=== PATIENT | male | born 1945 | race Caucasian/White ===

== ENCOUNTER 2017-09-23 10:11 | Day surgery (SDC) | payer MEDICARE, OTHER ==
[~2017-09-23 10:11] MED LIST: KETOROLAC TROMETHAMINE 0.45% 4 DROP/0.4 ML DROPERETTE OS PRN
[2017-09-23] MEDS: TETRACAINE HCL 0.5% OPH SOLN 0.6 ML DROPERETTE OS PRN ×2 (11:12→11:40)
[2017-09-23] MEDS: CYCLOPENTOLATE 0.2%/PHENYLEPHRINE 1% OPH SOLN 2 ML OS PRN ×3 (11:12→11:33)
[2017-09-23] MEDS: BESIFLOXACIN HCL 0.6% OPH SUSP 5 ML BOTTLE OS PRN ×4 (11:13→12:32)
[2017-09-23] MEDS: TROPICAMIDE 1% OPH SOLN 3 ML OS PRN ×3 (11:13→11:33)
[2017-09-23] MEDS ORDERED: MIDAZOLAM 2 MG/2 ML INJ ONE ×2 (11:32)
[2017-09-23] MEDS ORDERED: ALBUTEROL SULFATE 0.083% NEB 2.5 MG/3 ML AMPUL NEB ONE (11:39)
[2017-09-23] MEDS: LIDOCAINE 4% INJ/PF (40 MG/ML) 5 ML AMPUL OS PRN ×2 (11:54)
[2017-09-23] MEDS: BUPIVACAINE HCL 0.75% INJ/PF (7.5 MG/1 ML) 10 ML SDV OS PRN ×2 (11:54)
[2017-09-23] MEDS: CHONDR SU A NA/HYALUR INTRAOC KIT (SURGICARE) ONE ×2 (12:11)
[2017-09-23] MEDS: EPINEPHRINE INJ/PF 1 MG/1 ML AMPULE ONE ×2 (12:11)
[2017-09-23] MEDS: LIDOCAINE 1% INJ-PF (10 MG/ML) 30 ML SDV ONE ×2 (12:11)
--- NOTE | 2017-09-23 12:59 | [facility] OPERATIVE REPORT E ---
[facility] Operative Report NAME: BRIDGETTE URIBE AGE: 72Y DATE OF SURGERY: 09/23/2017 ROOM: PREOPERATIVE DIAGNOSIS: CATARACT, LEFT EYE. POSTOPERATIVE DIAGNOSIS: CATARACT, LEFT EYE. OPERATION: Complex cataract extraction with intraocular lens left eye. SURGEON: WAYLON DUKE M.D. ANESTHESIA: Topical with MAC plus intraocular lidocaine. INDICATIONS FOR SURGERY: Difficulty driving. Best corrected visual acuity 20/60. Indications for complex poor pupil dilation requiring the use of the Malyugin ring. PROCEDURE: The patient was brought to the operating room and placed on the operating table. Topical anesthesia was administered. This consisted of instrument wipe pledgets soaked in a solution of 4% Xylocaine mixed with 0.75% Marcaine in a 1:2 ratio. A 2 x 1 cm pledget was placed in the superior fornix. A 1 x 1 cm pledget was placed in the inferior fornix. The eye was patched shut for 5 minutes. The patch and pledgets were removed. The eye was sterilely prepped and draped in the usual manner. A lid speculum was placed in the eye. A 4-0 black silk suture was placed around the superior and inferior rectus muscles to use as traction. A conjunctival peritomy was made at the 10 o'clock position. Hemostasis was attained with bipolar cautery. A posterior limbal groove was created using a crescent knife and dissected anteriorly towards the cornea. A sharp point blade was used to create a paracentesis site at the 2 o'clock position. A 2.4 mm keratome was used to enter the anterior chamber through the groove. Then 0.5 mL of 1% nonpreserved lidocaine was injected into the anterior chamber. Viscoelastic was injected into the anterior chamber. Pupil dilation was approximately 4.5 mm. A Malyugin ring was placed stabilizing the iris. An anterior capsulotomy was performed using Utrata forceps in a capsulorrhexis fashion. Hydrodissection and hydrodelineation were performed. Phacoemulsification was performed in a kceoqu-phc-etgihkp technique. A total of 1 minutes 4 seconds total phaco time was used. Following this, the I/A unit was used to remove residual cortex. Viscoelastic was injected into the capsular bag. Intraocular lens model [id number]; 21.5 diopters, serial number [id number] was placed in the capsular bag. The Malyugin ring haptics were removed and the ring was removed from the eye. The I/A unit was used to remove residual viscoelastic. The wound was seen to be watertight under high and low pressure and no sutures were placed. The 4-0 black silk sutures and lid speculum were removed. The eye was shielded after Besivance drops were placed. The patient tolerated the procedure well and was sent to the recovery room in good condition. DICTATING PHYSICIAN: WAYLON DUKE M.D. [id number] PHY#: [id number] ID: [id number] JOB#: [id number] ACCT: [id number] cc:WAYLON DUKE M.D. >
--- NOTE | 2017-09-23 12:59 | [facility] DISCHARGE SUMMARY E ---
[facility] Discharge Summary NAME: BRIDGETTE URIBE AGE: 72Y ADMITTED: 09/23/2017 DISCHARGED: 09/23/2017 PREOPERATIVE DIAGNOSIS: Cataract, left eye. POSTOPERATIVE DIAGNOSIS: Cataract, left eye. HOSPITAL COURSE: The patient is a 72-year-old gentleman who underwent uneventful complex cataract extraction with intraocular lens implant, left eye, on 09/23/2017. He will be discharged to home. He was instructed to resume preoperative medications, take Tylenol as needed for discomfort, to keep his eye shielded, to use Pred Forte, Ketorolac, and Vigamox at 3 p.m. and 8 p.m., and to followup in my office this afternoon. DICTATING PHYSICIAN: WAYLON DUKE M.D. [id number] PHY#: [id number] ID: [id number] JOB#: [id number] ACCT: [id number] cc:WAYLON DUKE M.D. >
[2017-09-23] MEDS ORDERED: ACETAMINOPHEN 325 MG TABLET PO PRN (13:55)
[2017-09-23] MEDS ORDERED: BRIMONIDINE TARTRATE 0.2% OPH SOLN 5 ML OS ONE (14:30)
== END 2017-09-23 13:26 | disposition home or self-care (01) ==
LOC: SC 10:11
PROVIDERS: ATTEND Ophthalmology
PROC: 08RK3JZ Replacement of Left Lens with Synthetic Substitute, Percutaneous Approach (ICD-10-PCS; principal; 2017-09-23 12:00)
DX: H25.812 Combined forms of age-related cataract, left eye (principal); I10 Essential (primary) hypertension; F17.210 Nicotine dependence, cigarettes, uncomplicated; Z79.899 Other long term (current) drug therapy
CPT/HCPCS: 66982; V2632; J2250; J3490 ×4; J0171; 142

== ENCOUNTER 2017-10-14 09:51 | Day surgery (SDC) | payer OTHER ==
[~2017-10-14 09:51] MED LIST changes: +KETOROLAC TROMETHAMINE 0.45% 4 DROP/0.4 ML DROPERETTE OD PRN; -KETOROLAC TROMETHAMINE 0.45% 4 DROP/0.4 ML DROPERETTE OS PRN
[2017-10-14] MEDS: CYCLOPENTOLATE 0.2%/PHENYLEPHRINE 1% OPH SOLN 2 ML OD PRN ×3 (10:45→11:06)
[2017-10-14] MEDS: TETRACAINE HCL 0.5% OPH SOLN 0.6 ML DROPERETTE OD PRN ×2 (10:45→11:14)
[2017-10-14] MEDS: TROPICAMIDE 1% OPH SOLN 3 ML OD PRN ×3 (10:45→11:06)
[2017-10-14] MEDS: BESIFLOXACIN HCL 0.6% OPH SUSP 5 ML BOTTLE OD PRN ×4 (10:46→11:56)
[2017-10-14] MEDS ORDERED: ALBUTEROL SULFATE 0.083% NEB 2.5 MG/3 ML AMPUL NEB ONE (11:01)
[2017-10-14] MEDS ORDERED: MIDAZOLAM 2 MG/2 ML INJ ONE ×2 (11:04→11:38)
[2017-10-14] MEDS ORDERED: FENTANYL CITRATE INJ/PF 100 MCG/2 ML AMPUL ONE (11:04)
[2017-10-14] MEDS: BUPIVACAINE HCL 0.75% INJ/PF (7.5 MG/1 ML) 10 ML SDV OD PRN ×2 (11:21)
[2017-10-14] MEDS: LIDOCAINE 4% INJ/PF (40 MG/ML) 5 ML AMPUL OD PRN ×2 (11:21)
[2017-10-14] MEDS: EPINEPHRINE INJ/PF 1 MG/1 ML AMPULE ONE ×2 (11:37)
[2017-10-14] MEDS: LIDOCAINE 1% INJ-PF (10 MG/ML) 30 ML SDV ONE ×2 (11:38)
[2017-10-14] MEDS: CHONDR SU A NA/HYALUR INTRAOC KIT (SURGICARE) ONE ×2 (11:41)
--- NOTE | 2017-10-14 12:23 | [facility] OPERATIVE REPORT E ---
[facility] Operative Report NAME: BRIDGETTE URIBE AGE: 72Y DATE OF SURGERY: 10/14/2017 ROOM: PREOPERATIVE DIAGNOSIS: CATARACT, RIGHT EYE. POSTOPERATIVE DIAGNOSIS: 1. CATARACT, RIGHT EYE. 2. MIOSIS, RIGHT EYE. OPERATION: COMPLEX CATARACT EXTRACTION WITH INTRAOCULAR LENS IMPLANT, RIGHT EYE. SURGEON: WAYLON DUKE M.D. ANESTHESIA: Topical with monitored anesthesia care plus intraocular lidocaine. INDICATION FOR SURGERY: Difficulty with night driving. Best corrected visual acuity 20/80. Indications for complex poor pupil dilation requiring the use of a Malyugin ring. PROCEDURE: The patient was brought to the operating room and placed on the operating table. Topical anesthesia was administered. This consisted of instrument wipe pledgets soaked in a solution of 4% Xylocaine mixed with 0.75% Marcaine in a 1:2 ratio. A 2 x 1 cm pledget was placed in the superior fornix. A 1 x 1 cm pledget was placed in the inferior fornix. The eye was patched shut for 5 minutes. The patch and pledgets were removed. The eye was sterilely prepped and draped in the usual manner. A lid speculum was placed in the eye. A 4-0 black silk suture was placed around the superior and inferior rectus muscles to use as traction. A conjunctival peritomy was made at the 10 o'clock position. Hemostasis was attained with bipolar cautery. A posterior limbal groove was created using a crescent knife and dissected anteriorly towards the cornea. A sharp point blade was used to create a paracentesis site at the 2 o'clock position. A 2.4 mm keratome was used to enter the anterior chamber through the groove. Then 0.5 mL of 1% nonpreserved lidocaine was injected into the anterior chamber. Viscoelastic was injected into the anterior chamber. Pupil dilation was approximately 4.5 mm. A Malyugin Ring was placed stabilizing the iris. An anterior capsulotomy was performed using Utrata forceps in a capsulorrhexis fashion. Hydrodissection and hydrodelineation were performed. Phacoemulsification was performed in a rimvta-lvb-jthjrzo technique. A total of 1 minute, 8 seconds total phaco time was used. Following this, the I/A unit was used to remove residual cortex. Viscoelastic was injected into the capsular bag. Intraocular lens model [id number]; 22.5 diopters, serial number [id number] was placed in the capsular bag. The Malyugin ring haptics were removed and the ring was removed from the eye. The I/A unit was used to remove residual viscoelastic. The wound was seen to be watertight under high and low pressure and no sutures were placed. The 4-0 black silk sutures and lid speculum were removed. The eye was shielded after Besivance drops were placed. The patient tolerated the procedure well and was sent to the recovery room in good condition. DICTATING PHYSICIAN: WAYLON DUKE M.D. DICTATING PHYSICIAN: WAYLON DUKE M.D. [id number] PHY#: [id number] ID: [id number] JOB#: [id number] ACCT: [id number] cc:WAYLON DUKE M.D. > MTDD
--- NOTE | 2017-10-14 12:28 | [facility] DISCHARGE SUMMARY E ---
[facility] Discharge Summary NAME: BRIDGETTE URIBE AGE: 72Y ADMITTED: 10/14/2017 DISCHARGED: 10/14/2017 FINAL DIAGNOSIS: 1. CATARACT, RIGHT EYE. 2. MIOSIS, RIGHT EYE. The patient is a 72-year-old gentleman who underwent uneventful complex cataract extraction with intraocular lens implant, right eye, on 10/14/17. He will be discharged to home. He was instructed to resume preoperative medications, take Tylenol as needed for discomfort. To keep his eye shielded. To use Pred-Forte, ketorolac, and Vigamox at 3 p.m. and 8 p.m. as well as to continue all his glaucoma drops. He will follow up in my office in 1 day. DICTATING PHYSICIAN: WAYLON DUKE M.D. [id number] PHY#: [id number] ID: [id number] JOB#: [id number] ACCT: [id number] cc:WAYLON DUKE M.D. > MTDD
== END 2017-10-14 12:46 | disposition home or self-care (01) ==
LOC: SC 09:51
PROVIDERS: ATTEND Ophthalmology
PROC: 08RJ3JZ Replacement of Right Lens with Synthetic Substitute, Percutaneous Approach (ICD-10-PCS; principal; 2017-10-14 11:30)
DX: H25.11 Age-related nuclear cataract, right eye (principal); H57.03 Miosis; Z96.1 Presence of intraocular lens; I10 Essential (primary) hypertension; Z86.73 Personal history of transient ischemic attack (TIA), and cerebral infarction without residual deficits; Z79.899 Other long term (current) drug therapy; Z79.82 Long term (current) use of aspirin
CPT/HCPCS: 66982; V2632; J2250; J3490 ×4; J0171; J3010; 142

== ENCOUNTER 2018-09-17 09:53 | Day surgery (SDC) | payer OTHER, MEDICARE ==
[2018-09-10 10:35] LABS: HEMATOCRIT 48.6 % (37.9-51.0); HEMOGLOBIN 16.9 g/dL (13.5-17.0); MEAN CORPUSCULAR HEMOGLOBIN 33.8 pg (27.0-33.4); MEAN CORPUSCULAR HGB CONC 34.8 g/dL (32.0-36.0); MEAN CORPUSCULAR VOLUME 97 fl (80-97); PLATELET COUNT 264 10^3/uL (150-450); RED BLOOD COUNT 5.01 10^6/uL (4.35-5.55); RED CELL DISTRIBUTION WIDTH 12.6 % (11.5-14.0); WHITE BLOOD COUNT 7.8 10^3/uL (4.0-10.5)
[2018-09-10 11:01] LABS: ALANINE AMINOTRANSFERASE 22 U/L (21-72); ALBUMIN 4.6 g/dL (3.5-5.0); ALKALINE PHOSPHATASE 79 U/L (38-126); AMYLASE 48 U/L (30-110); ANION GAP 5 (5-19); ASPARTATE AMINO TRANSFERASE 21 U/L (17-59); BILIRUBIN,DIRECT 0.3 mg/dL (0.0-0.4); BILIRUBIN,TOTAL 0.8 mg/dL (0.2-1.3); BLOOD UREA NITROGEN 23 mg/dL (7-20); CALCIUM 9.7 mg/dL (8.4-10.2); CARBON DIOXIDE 29 mmol/L (22-30); CHLORIDE 109 mmol/L (98-107); GLUCOSE 103 mg/dL (75-110); POTASSIUM 5.2 mmol/L (3.6-5.0); SODIUM 143.4 mmol/L (137-145); TOTAL PROTEIN 6.9 g/dL (6.3-8.2)
--- NOTE | 2018-09-10 12:37 | RADIOLOGY REPORT (SQ) ---
EXAM DESCRIPTION: CHEST PA/LATERAL COMPLETED DATE/TIME: 09/10/2018 10:24 am REASON FOR STUDY: PRE-OP K80.80 OTHER CHOLELITHIASIS WITHOUT OBSTRUCTION COMPARISON: 2012 NUMBER OF VIEWS: Two view. TECHNIQUE: Frontal and lateral radiographic views of the chest acquired. LIMITATIONS: None. FINDINGS: LUNGS AND PLEURA: Stable apical pleural thickening. No pleural effusion. Attenuated blood vessels and flattened jesus-diaphragms. MEDIASTINUM AND HILAR STRUCTURES: No masses. No contour abnormalities. HEART AND VASCULAR STRUCTURES: Heart normal in size and contour. No evidence for failure. BONES: No acute findings. HARDWARE: None in the chest. OTHER: No other significant finding. IMPRESSION: COPD. NO ACUTE RADIOGRAPHIC FINDING IN THE CHEST. TECHNICAL DOCUMENTATION: JOB ID: [id number] [employer]- All Rights Reserved Reading location - IP/workstation name: [email or web address]
--- NOTE | 2018-09-10 12:48 | EKG REPORT ---
SEVERITY:- NORMAL ECG - SINUS RHYTHM : Confirmed by: Jordan Trejo MD 10-Sep-2018 12:47:55
[~2018-09-17 09:53] MED LIST changes: +ACETAMINOPHEN 325 MG TABLET PO PRN; +CEFAZOLIN 1 GM/D5W RTU 1 GM/50 ML RTUPB IV ONE; +CEFAZOLIN 1 GM/D5W RTU 1 GM/50 ML RTUPB IV PRN; +DEXAMETHASONE SOD PHOSPHATE INJ 4 MG/1 ML VIAL ONE; -KETOROLAC TROMETHAMINE 0.45% 4 DROP/0.4 ML DROPERETTE OD PRN; +LACTATED RINGERS 1000 ML IV PRN; +LIDOCAINE 0.5% INJ-PF (5 MG/ML) 50 ML SDV SUBCUT PRN; +METRONIDAZOLE 500 MG/NS RTU 500 MG/100 ML RTUPB IV PRN; +ONDANSETRON HCL INJ/PF 4 MG/2 ML SDV ONE; +PHENYLEPHRINE HCL INJ/PF 10 MG/1 ML SDV ONE; +ROCURONIUM BROMIDE INJ 50 MG/5 ML VIAL IV ONE; +SUCCINYLCHOLINE CHLORIDE INJ 200 MG/10 ML VIAL ONE
[2018-09-17] MEDS ORDERED: ALBUTEROL SULFATE 0.083% NEB 2.5 MG/3 ML AMPUL NEB ONE (10:16)
[2018-09-17] MEDS ORDERED: BUPIVACAINE HCL 0.5%-EPI 1:200000 INJ/PF 30 ML VIAL ONE (10:27)
[2018-09-17] MEDS ORDERED: PROPOFOL INJ 200 MG/20 ML VIAL IV ONE (11:45)
[2018-09-17] MEDS ORDERED: FENTANYL CITRATE INJ/PF 250 MCG/5 ML AMPULE ONE (11:45)
[2018-09-17] MEDS ORDERED: MIDAZOLAM 2 MG/2 ML INJ ONE (11:45)
[2018-09-17] MEDS ORDERED: HYDROMORPHONE HCL INJ/PF 2 MG/ML AMPULE ONE (11:45)
[2018-09-17] MEDS ORDERED: ACETAMINOPHEN 1,000 MG/100 ML RTUPB IV ONE (11:46)
[2018-09-17] MEDS ORDERED: METRONIDAZOLE 500 MG/NS RTU 500 MG/100 ML RTUPB IV ONE (12:43)
[2018-09-17] MEDS ORDERED: SUGAMMADEX SODIUM 200 MG/2 ML SDV IV ONE (12:47)
[2018-09-17] MEDS ORDERED: DIPHENHYDRAMINE HCL 50 MG/ML VIAL IV PRN (12:52)
[2018-09-17] MEDS ORDERED: FENTANYL CITRATE INJ/PF 100 MCG/2 ML AMPUL IV PRN ×3 (12:52)
[2018-09-17] MEDS ORDERED: PROMETHAZINE HCL INJ 25 MG/1 ML VIAL IV PRN (12:52)
--- NOTE | 2018-09-17 13:06 | Operative Report ---
Operative Report DATE OF SURGERY: 09/17/18 PREOPERATIVE DIAGNOSIS: cholelithiaisis POSTOPERATIVE DIAGNOSIS: same OPERATION: lap cholecytectomy SURGEON: DANIELA MUNOZ 1ST PRIMARY CARE COORDINATOR: FLASH JAMES ANESTHESIA: GA TISSUE REMOVED OR ALTERED: gallbladder COMPLICATIONS: done ESTIMATED BLOOD LOSS: 25 INTRAOPERATIVE FINDINGS: cholecystitis PROCEDURE: see dictation
--- NOTE | 2018-09-17 13:15 | Discharge Summary ---
Discharge Summary (SDC) - Discharge Final Diagnosis: chlolelilthiasis Date of Surgery: 09/17/18 Condition: Good [facility]errals: [facility] [[facility] Provider] - Discharge Activity: Activity As Tolerated
--- NOTE | 2018-09-17 14:00 | OPERATIVE REPORT E ---
Operative Report NAME: BRIDGETTE URIBE : 1945 AGE: 73Y DATE OF SURGERY: 09/17/2018 ROOM: PREOPERATIVE DIAGNOSIS: Cholelithiasis. POSTOPERATIVE DIAGNOSIS: Cholelithiasis. OPERATIVE PROCEDURE: Laparoscopic cholecystectomy. SURGEON: DANIELA MUNOZ M.D. 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 The abdomen was prepped and draped in the usual sterile manner for the procedure. A Veress needle was placed into the umbilicus and the abdomen was insufflated with 6 L of CO2 gas. An infraumbilical 10 mm incision was made with a 12 blade and 10 mm port placed in the abdominal cavity. Intra-abdominal visualization revealed no evidence of a Veress needle or trocar injury. An epigastric 5 mm port was placed under direct vision to lateral 5 mm port. The gallbladder was placed on traction. Hepatic duodenal ligament was isolated. The cystic duct and cystic artery were both dissected out of the hepatoduodenal ligament, doubly ligated on the stay side, one on the specimen side, and these structures were divided. The gallbladder was dissected out of the liver bed with Bovie cautery, placed in an Endobag, and removed through the umbilical port site. The right upper quadrant was copiously irrigated with normal saline and suctioned dry. Hemostasis of the liver bed was obtained with Bovie cautery. After good hemostasis, we removed the ports and we closed the umbilical port site with an 0 Vicryl figure of eight placed suture. Skin was closed with intra-articular 4-0 Rapide and Steri-Strips completed the procedure. Estimated blood loss was less than 25 mL. Sponge and needle counts were correct x2. The patient was awakened in the operating room, extubated, and transferred to recovery in stable condition. No complications. Catalina Ferreira was the director of first impressions. She was there for retraction and help with dissection and wound closure. DICTATING PHYSICIAN: DANIELA MUNOZ M.D. [id number] PHY#: [id number] ID: [id number] JOB#: [id number] ACCT: [id number] cc:DANIELA MUNOZ M.D. >
[2018-09-17] MEDS ORDERED: TRAMADOL HCL 50 MG TABLET ONE (14:18)
[2018-09-17 15:11] VITALS: BP 129/80
== END 2018-09-17 15:20 | disposition home or self-care (01) ==
LOC: OROUT 09:53
PROVIDERS: ATTEND Surgery
DX: K80.10 Calculus of gallbladder with chronic cholecystitis without obstruction (principal); I10 Essential (primary) hypertension; F17.210 Nicotine dependence, cigarettes, uncomplicated; Z79.899 Other long term (current) drug therapy
CPT/HCPCS: 93005; 86900; 86901; 36415; 86850; 82150; 85027; 80076; 80048; 88304 ×2; 71046; 93010; 47562; J2250; J3490 ×3; J0690; J1100; J3010; J1170; J2370; J0330; J2405; J2704; J0131; 790

== ENCOUNTER → 2020-08-03 | Outpatient (CLI) | payer OTHER ==
--- NOTE | 2020-08-03 15:05 | RADIOLOGY REPORT (SQ) ---
EXAM DESCRIPTION: CT HEAD COMBO IMAGES COMPLETED DATE/TIME: 08/03/2020 2:04 pm REASON FOR STUDY: H53.19 OTHER SUBJECTIVE VISUAL DISTURBANCES H53.19 OTHER SUBJECTIVE VISUAL DISTUR BANCES COMPARISON: 2009 TECHNIQUE: Axial images acquired through the brain without and with intravenous contrast. Images re viewed with bone, brain and subdural windows. Additional sagittal and coronal reconstructions were g enerated. Images stored on PACS. All CT scanners at this facility use dose modulation, iterative reconstruction, and/or weight based d osing when appropriate to reduce radiation dose to as low as reasonably achievable (ALARA). [facility]: Dose Right [facility]: CareDose [facility]: Dose Right [facility]: Teradose 4D [facility]: Taking Point CONTRAST TYPE AND DOSE: contrast/concentration: Isovue 350.00 mmol/ml; Total Contrast Delivered: 50. 0 ml; Total Saline Delivered: 55.0 ml RENAL FUNCTION: Creatinine 1.1 RADIATION DOSE: CT Rad equipment meets quality standard of care and radiation dose reduction techniq ues were employed. CTDIvol: 49.0 mGy. DLP: 2019 mGy-cm.. LIMITATIONS: None. FINDINGS: VENTRICLES: Normal size and contour. CEREBRUM: No masses. No hemorrhage. No midline shift. Normal atnoine/white matter differentiation. Smal l lacunar infarction in the anterior limb of the internal capsule on the right. There is a 25 x 10 m m area of decreased attenuation in the deep posterior right temporal lobe that appears to be just at the inferior margin of the posterior limb of the internal capsule. No evidence for acute infarction. No enhancing lesions. CEREBELLUM: There are areas encephalomalacia in the left lobe of the cerebellum that are seen on the prior study and are stable. No acute hemorrhage. No enhancement. EXTRA-AXIAL SPACES: No fluid collections. No enhancing lesions. ORBITS AND GLOBE: No intra- or extraconal masses. Normal contour of globe without masses. CALVARIUM: No fracture. PARANASAL SINUSES: No fluid or mucosal thickening. SOFT TISSUES: No mass or hematoma. OTHER: No other significant finding. 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 No acute intracranial imaging finding is seen. No enhancing lesion is seen. EVIDENCE OF ACUTE STROKE: NO. TECHNICAL DOCUMENTATION: JOB ID: [id number] Quality ID # [id number]: Final reports with documentation of one or more dose reduction techniques (e.g., Au tomated exposure control, adjustment of the mA and/or kV according to patient size, use of iterative reconstruction technique) 2010 Present- All Rights Reserved Reading location - IP/workstation name: [email or web address]
== END ==
LOC: RAD 13:30
PROVIDERS: ATTEND Internal Medicine
DX: H53.19 Other subjective visual disturbances (principal); I67.82 Cerebral ischemia; Z86.73 Personal history of transient ischemic attack (TIA), and cerebral infarction without residual deficits
CPT/HCPCS: 70470; 82565

== ENCOUNTER 2020-08-04 17:44 | Inpatient (IN) | payer OTHER ==
--- NOTE | 2020-08-04 18:10 | ER Document Report ---
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 He was seen in the office on Friday had a CT scan of the brain which showed subacute infarcts the visual loss has been getting progressively worse. Attempts were made to get the patient seen by neurology with outpatient MRI and MRA without success. Dr. Rider referred him to the emergency room for further evaluation and testing. He is requesting MRI head, MRA head and neck. PE: Patient is alert and oriented x3. Lungs: Clear to auscultation without rales, rhonchi, wheezes. Heart: Regular rate rhythm without murmurs, rubs, gallops. I have greeted and performed a rapid initial assessment of this patient. A comprehensive ED assessment and evaluation of the patient, analysis of test results and completion of the medical decision making process will be conducted by additional ED providers. I have specifically instructed the patient or family members with the patient to immediately return to any nursing staff should anything change in the patient's condition or with their chief complaint. TRAVEL OUTSIDE OF THE [place] IN LAST 30 DAYS: No - Related Data Allergies/Adverse Reactions: aspirin [Aspirin] Adverse Reaction (Verified 08/04/20 18:06) Home Medications: eye drops x 3, Metoprolol Past Medical History - Past Medical History Cardiac Medical History: Reports: Hx Hypertension Denies: Hx Atrial Fibrillation, Hx Congestive Heart Failure, Hx Coronary Artery Disease, Hx Heart Attack, Hx Hypercholesterolemia, Hx Peripheral Vascular Disease, Hx Pulmonary Embolism, Hx Heart Murmur Pulmonary Medical History: Denies: Hx Asthma, Hx Bronchitis, Hx COPD, Hx Pneumonia, Hx Respiratory Failure, Hx Sleep Apnea, Hx Tuberculosis Neurological Medical History: Denies: Hx Cerebrovascular Accident, Hx Seizures, Hx Parkinson's Disease Malignancy Medical History: Denies Hx Lung Cancer GI Medical History: Denies: Hx Hepatitis, Hx Hiatal Hernia, Hx Ulcer Musculoskeltal Medical History: Denies Hx Arthritis, Denies Hx Multiple Sclerosis, Reports Hx Musculoskeletal Deformity, Reports Hx Musculoskeletal Trauma Psychiatric Medical History: Denies: Hx Dementia Traumatic Medical History: Denies: Hx Fractures Infectious Medical History: Denies: Hx Hepatitis Past Surgical History: Reports: Hx Orthopedic Surgery - back. Denies: Hx Appendectomy, Hx Bowel Surgery, Hx Cholecystectomy, Hx Coronary Artery Bypass Graft, Hx Gastric Bypass Surgery, Hx Herniorrhaphy, Hx Open Heart Surgery, Hx Pacemaker, Hx Tonsillectomy - Immunizations Immunizations up to date: No Hx Diphtheria, Pertussis, Tetanus Vaccination: No Physical Exam - Vital signs Vitals: Temp Pulse Resp BP Pulse Ox 98.2 F 76 18 162/93 H 96 08/04/20 17:53 08/04/20 17:53 08/04/20 17:53 08/04/20 17:53 08/04/20 17:53 Course - Vital Signs Vital signs: Temp Pulse Resp BP Pulse Ox 98.2 F 76 18 162/93 H 96 08/04/20 17:53 08/04/20 17:53 08/04/20 17:53 08/04/20 17:53 08/04/20 17:53 Doctor's Discharge - Discharge Referrals: JAMEEL RIDER MD [Primary Care Provider] - Follow up as needed
[2020-08-04] MEDS ORDERED: LORAZEPAM INJ 2 MG/1 ML VIAL IV ONE (19:07)
[2020-08-04 19:33] LABS: INTERNATIONAL RATION (INR) 0.99; PROTHROMBIN TIME 13.3 SEC (11.4-15.4)
--- NOTE | 2020-08-04 20:54 | RADIOLOGY REPORT (SQ) ---
MR BRAIN WITHOUT IV CONTRAST. MR ANGIOGRAPHY OF THE HEAD AND NECK HISTORY: Vision loss. Evaluate for acute infarction. COMPARISON: CT scan from 08/03/2020. TECHNIQUE: 1) Multisequence, multiplanar MR imaging of the brain was performed without the administration of intravenous gadolinium. 2) MR angiography of the head and neck was performed without the administration of intravenous gadolinium. FINDINGS: MRI: There is a focal area restricted diffusion in the right medial temporal white matter consistent with acute infarct. Scattered areas of T2/FLAIR hyperintense foci are seen in the supratentorial white matter, likely representing chronic microvascular ischemia. There is no intracranial hemorrhage, extra-axial fluid collection, or mass. The orbits are unremarkable. The calvarium and skull base appear unremarkable. The paranasal sinuses are clear. MRA: The anterior and posterior cerebral circulations are patent. circulation of the right VOICE DATA COMMUNICATIONS ENGINEER is noted. No hemodynamically significant stenosis, aneurysmal dilatation or dissection is seen. No focal aneurysm is identified. No hemodynamically significant stenosis of the common carotid, carotid bifurcation, or internal carotid arteries is seen. The extracranial portions of the vertebral basilar system are preserved without stenosis. No aneurysmal dilatation or dissection is seen. IMPRESSION: 1. Acute lacunar infarct in the right temporal lobe white matter. 2. Chronic microvascular ischemia. 3. Unremarkable MR angiogram of the head and neck.
--- NOTE | 2020-08-04 21:58 | ER Document Report ---
ED General - General Chief Complaint: Loss of Vision Stated Complaint: LOSS OF VISION Time Seen by Provider: 08/04/20 18:02 Mode of Arrival: Ambulatory TRAVEL OUTSIDE OF THE [place] IN LAST 30 DAYS: No - HPI Notes: 75-year-old male with past medical history for glaucoma, hypertension to the emergency department with complaints of progressively worsening peripheral vision loss for the past week and a half. He has been evaluated by Dr. Rider outpatient. Dr. Rider ordered a head CT but became concerned that the patient may be having an acute stroke when he found that his vision changes were worsening. Patient typically goes to the [facility] for primary care but Dr. Abrams was not successful and securing an outpatient MRI so he sent him to the emergency department for further evaluation. Patient states that he feels like his peripheral vision is dark and that he has some black veil over his left eye. He states that his left eye is worse than his right. He denies any other n eurological symptoms. He denies any difficulty with speech. His thinks that he has a little bit of difficulty with some word finding. He is not on any blood thinners. When inquiring about his aspirin allergy, patient states that it is actually GI upset and not a true allergy. He does not have a past medical history for diabetes and he is unsure of his cholesterol levels. NIH is 1. Esperanza ent does not meet criteria for TPA. - Related Data Allergies/Adverse Reactions: aspirin [Aspirin] Adverse Reaction (Verified 08/04/20 18:06) Home Medications: eye drops x 3, Metoprolol Past Medical History - General Information source: Patient - Social History Smoking Status: Current Every Day Smoker Lives with: Spouse/Significant other Family History: Reviewed & Not Pertinent - Past Medical History Cardiac Medical History: Reports: Hx Hypertension Denies: Hx Atrial Fibrillation, Hx Congestive Heart Failure, Hx Coronary Artery Disease, Hx Heart Attack, Hx Hypercholesterolemia, Hx Peripheral Vascular Disease, Hx Pulmonary Embolism, Hx Heart Murmur Pulmonary Medical History: Denies: Hx Asthma, Hx Bronchitis, Hx COPD, Hx Pneumonia, Hx Respiratory Failure, Hx Sleep Apnea, Hx Tuberculosis Neurological Medical History: Denies: Hx Cerebrovascular Accident, Hx Seizures, Hx Parkinson's Disease Malignancy Medical History: Denies Hx Lung Cancer GI Medical History: Denies: Hx Hepatitis, Hx Hiatal Hernia, Hx Ulcer Musculoskeletal Medical History: Denies Hx Arthritis, Denies Hx Multiple Sclerosis, Reports Hx Musculoskeletal Deformity, Reports Hx Musculoskeletal Trauma Psychiatric Medical History: Denies: Hx Dementia Traumatic Medical History: Denies: Hx Fractures Infectious Medical History: Denies: Hx Hepatitis Past Surgical History: Reports: Hx Orthopedic Surgery - back. Denies: Hx Appendectomy, Hx Bowel Surgery, Hx Cholecystectomy, Hx Coronary Artery Bypass Graft, Hx Gastric Bypass Surgery, Hx Herniorrhaphy, Hx Open Heart Surgery, Hx Pacemaker, Hx Tonsillectomy - Immunizations Immunizations up to date: No Hx Diphtheria, Pertussis, Tetanus Vaccination: No Review of Systems - Review of Systems Constitutional: denies: Chills, Fever EENT: Other - vision loss Cardiovascular: denies: Chest pain, Palpitations, Heart racing, Orthopnea, Dyspnea, Syncope, Dizziness, Lightheaded Respiratory: denies: Cough, Short of breath Gastrointestinal: denies: Abdominal pain, Diarrhea, Nausea, Vomiting Genitourinary: No symptoms reported Male Genitourinary: No symptoms reported Musculoskeletal: No symptoms reported Skin: No symptoms reported Neurological/Psychological: denies: Confusion, Seizure, Headaches, Numbness, Suicidal ideation, Tingling -: Yes All other systems reviewed and negative Physical Exam - Vital signs Vitals: Temp Pulse Resp BP Pulse Ox 98.2 F 76 18 162/93 H 96 08/04/20 17:53 08/04/20 17:53 08/04/20 17:53 08/04/20 17:53 08/04/20 17:53 Interpretation: Hypertensive - General General appearance: Appears well, Alert In distress: None - HEENT Head: Normocephalic Eyes: Normal. No: Pale conjunctiva, Periorbital ecchymosis, Periorbital edema, Scleral icterus, Other Conjunctiva: Normal Cornea: Normal Eyelashes: Normal Pupils: PERRL Fundascopic: Normal Visual ku normal: No - there is deficit in bilateral peripheral vision ku Ears: Normal External canal: Normal Tympanic membrane: Normal Neck: Normal, Supple - Respiratory Respiratory status: No respiratory distress Chest status: Nontender Breath sounds: Normal. No: Rales, Rhonchi, Wheezing Chest palpation: Normal - Cardiovascular Rhythm: Regular Heart sounds: Normal auscultation Murmur: No - Abdominal Inspection: Normal Distension: No distension Bowel sounds: Normal Tenderness: Nontender. No: Tender, McBurney's point, Bardales's sign Organomegaly: No organomegaly - Extremities General upper extremity: Normal inspection, Nontender, Normal color, Normal ROM, Normal temperature General lower extremity: Normal inspection, Nontender, Normal color, Normal ROM, Normal temperature, Normal weight bearing - Neurological Neuro grossly intact: Yes Cognition: Normal Orientation: AAOx4 Robinson Coma Scale Eye Opening: Spontaneous Robinson Coma Scale Verbal: Oriented Robinson Coma Scale Motor: Obeys Commands Robinson Coma Scale Total: 15 Speech: Other - subtle word finding hesitation, no dysarthria Cranial nerves: No: Facial palsy, Forehead sparing, Gaze palsy, Sensory deficit, Tongue deviation Cerebellar coordination: Normal. No: Gait ataxia - no leg drift, normal heel to andrade bilaterally Motor strength normal: LUE, RUE, LLE, RLE Additional motor exam normals: [employer] Sensory: Normal Notes: SEE HEENT with discussion of vision ku deficits - Psychological Associated symptoms: Normal affect, Normal mood - Skin Skin Temperature: Warm Skin Moisture: Dry Skin Color: Normal Course - Re-evaluation Re-evalutation: 08/04/20 Noted MRI result. Patient does have visual field defects. On MRI there is an acute right-sided temporal lacunar infarct. Discussed the patient with my ER attending Dr. Houser. He suggest consulting neurology at [facility] to discuss if the patient would need to come over to them given the visual involvement of the stroke and whether or not they would recommend him coming in since his symptoms started about a week and a half ago. I placed a page out to [facility]. I have discussed this plan with the patient and he agrees I spoke with Rusty Rodriguez, neurology PA on-call for [facility]. We discussed the patient as well as the MRI findings. She states that the patient would not need to come over to [facility] because he does not need ophthalmology specifically for this and also would not need any sort of neuro interventional procedures given his symptoms started a week and a half ago. She does recommend admission for stratification for lipids, further monitoring for atrial fib, echo. We agree that patient can be admitted here at [place] for further management. I spoke with Dr. Browning, hospitalist. We discussed the patient and also my conversation with neurology from [facility]. He agrees with the plan for admi ssion. He would like him to go to telemetry. Updated patient and about the plan and they agree. Impression: Acute right temporal lacunar infarct. Vision loss. Patient to be admitted to the hospital for further stratification and maximizing his medical management. - Vital Signs Vital signs: Temp Pulse Resp BP Pulse Ox 98.2 F 76 22 H 127/64 H 93 08/04/20 17:53 08/04/20 17:53 08/05/20 00:01 08/05/20 00:01 08/05/20 00:01 - Laboratory Result Diagrams: 08/04/20 21:57 08/04/20 21:57 Laboratory results interpreted by me: 08/04/20 08/04/20 21:57 21:57 MCH 33.8 H BUN 24 H - Diagnostic Test Radiology reviewed: Image reviewed, Reports reviewed - EKG Interpretation by Me Additional EKG results interpreted by me: rate: 68, rhythm: Sinus Interpretation: No STEMI, non specific t wave abnormalities. No significant changes from prior on 09/10/2018 Discharge - Discharge Clinical Impression: Vision loss, Lacunar infarct, acute Condition: Stable Disposition: ADMITTED INPATIENT Admitting Provider: [facility] Unit Admitted: Telemetry
[2020-08-04 22:20] LABS: ABSOLUTE EOSINOPHILS # (AUTO) 0.1 10^3/uL (0.0-0.6); ABSOLUTE LYMPHOCYTES (AUTO) 2.1 10^3/uL (0.5-4.7); ABSOLUTE MONOCYTES (AUTO) 0.5 10^3/uL (0.1-1.4); ABSOLUTE NEUT (AUTO) 3.4 10^3/uL (1.7-8.2); BASOPHILS % (AUTO) 0.6 % (0-2); EOSINOPHILS % (AUTO) 1.9 % (0-6); HEMATOCRIT 48.7 % (37.9-51.0); LYMPHOCYTES % (AUTO) 33.7 % (13-45); MEAN CORPUSCULAR HEMOGLOBIN 33.8 pg (27.0-33.4); MEAN CORPUSCULAR VOLUME 97 fl (80-97); MONOCYTES % (AUTO) 7.6 % (3-13); PLATELET COUNT 278 10^3/uL (150-450); RED BLOOD COUNT 5.03 10^6/uL (4.35-5.55); RED CELL DISTRIBUTION WIDTH 12.9 % (11.5-14.0); SEGMENTED NEUTROPHILS % (AUTO) 56.2 % (42-78); TOTAL CELLS COUNTED % (AUTO) 100 %; WHITE BLOOD COUNT 6.1 10^3/uL (4.0-10.5)
[2020-08-04 22:31] LABS: ALBUMIN 4.3 g/dL (3.5-5.0); ALKALINE PHOSPHATASE 88 U/L (38-126); ANION GAP 7 (5-19); ASPARTATE AMINO TRANSFERASE 26 U/L (17-59); BILIRUBIN,DIRECT 0.1 mg/dL (0.0-0.4); BILIRUBIN,TOTAL 0.9 mg/dL (0.2-1.3); BLOOD UREA NITROGEN 24 mg/dL (7-20); CALCIUM 9.7 mg/dL (8.4-10.2); CARBON DIOXIDE 26 mmol/L (22-30); CHLORIDE 106 mmol/L (98-107); GLUCOSE 94 mg/dL (75-110); POTASSIUM 4.3 mmol/L (3.6-5.0); TOTAL PROTEIN 7.1 g/dL (6.3-8.2)
[2020-08-04] MEDS ORDERED: IPRATROPIUM/ALBUTEROL 0.5-2.5 MG/3 ML AMPUL NEB PRN (23:36)
[2020-08-04] MEDS ORDERED: ACETAMINOPHEN 325 MG TABLET PO PRN (23:36)
[2020-08-04] MEDS ORDERED: NORMAL SALINE 1000 ML 1,000 ML IV PRN (23:53)
--- NOTE | 2020-08-04 23:54 | PDOC H&P ---
History of Present Illness Admission Date/PCP: 08/04/20 23:43 JAMEEL DELEON MD Patient complains of: Peripheral loss of vision History of Present Illness: BRIDGETTE URIBE is a 75 year old male with a history of hypertension, glaucoma and TIA who presents with a week and half duration of peripheral loss of vision. Patient was evaluated by outside ophthalmology and on a work-up CT head was done which was concerning for a possible subacute stroke. Attempt was made to complete the work-up as outpatient with his primary care at the [facility] but was unsuccessful and he was sent to the ED for further work-up and management. Patient reports that he developed a sudden onset change in his vision which she describes as his peripheral vision being blurry on both side. He states that he has not noticed any worsening after the initial incident. He denies any change in his speech, weakness in his extremities, difficulty of swallowing, dizziness or any numbness or tingling in his extremities. He also denied any history of head injury, palpitation, chest pain, or any change in his bowel or urinary habits. MRI and MRA head and neck were done which showed acute lacunar infarct in the right temporal lobe with chronic microvascular signs of ischemia. Past Medical History Cardiac Medical History: Reports: Hypertension Denies: Atrial Fibrillation, Congestive Heart Failure, Coronary Artery Disease, Myocardial Infarction, Hyperlipidema, Peripheral Vascular Disease, Pulmonary Embolism, Heart Murmur Pulmonary Medical History: Denies: Asthma, Bronchitis, Chronic Obstructive Pulmonary Disease (COPD), Pneumonia, Respiratory Failure, Sleep Apnea, Tuberculosis Neurological Medical History: Denies: Seizures Malignancy Medical History: Denies: Lung Cancer GI Medical History: Denies: Hepatitis, Hiatal Hernia Musculoskeltal Medical History: Denies: Arthritis Psychiatric Medical History: Denies: Dementia Hematology: Denies: Anemia, Sickle Cell Disease Past Surgical History Past Surgical History: Reports: Orthopedic Surgery - back Denies: Appendectomy, Cholecystectomy, Coronary Artery Bypass Graft, Gastric Bypass Surgery, Herniorrhaphy, Pacemaker, Tonsillectomy Social History Information Source: Patient Lives with: Family Smoking Status: Current Every Day Smoker Hx Recreational Drug Use: No Hx Prescription Drug Abuse: No - Advance Directive Resuscitation Status: Full Code Family History Parental Family History Reviewed: Yes Children Family History Reviewed: Yes Sibling(s) Family History Reviewed.: Yes Medication/Allergy Home Medications: Metoprolol Tartrate [Lopressor 50 mg Tablet] 50 mg PO Q12H 10/04/12 Brimonidine Tartrate/Timolol [Combigan 0.2%-0.5% Eye Drops] 1 drop OP BID 09/22/17 Ketorolac Tromethamine 0.45% [Acuvail 0.45% Oph Soln 0.4 ml/Dropperette] 1 drop OS ASDIR 09/22/17 Latanoprost [Xalatan] 1 drop OP QHS 09/22/17 Moxifloxacin HCl [Moxifloxacin] 1 drop OP ASDIR 09/22/17 Prednisolone Acetate/Nepafenac [Prednisolone 1%-Nepafenac 0.1%] 1 drop OP ASDIR 09/22/17 Bromondine 1 drop OP ASDIR 10/14/17 Moxifloxacin HCl [Vigamox 0.5% Oph Soln 3 ml] 1 drop OP ASDIR 10/14/17 Prednisolone 1 drop OP ASDIR 10/14/17 Allergies/Adverse Reactions: aspirin [Aspirin] Adverse Reaction (Verified 08/04/20 18:06) Review of Systems Constitutional: ABSENT: chills, fever(s), headache(s), weight gain, weight loss Eyes: PRESENT: as per HPI Ears: ABSENT: hearing changes Nose, Mouth, and Throat: ABSENT: headache(s), mouth pain, sore throat Cardiovascular: ABSENT: chest pain, dyspnea on exertion, edema, orthropnea, palpitations Respiratory: PRESENT: cough, other - Wheezing Gastrointestinal: ABSENT: abdominal pain, constipation, diarrhea, hematemesis, hematochezia, nausea, vomiting Genitourinary: ABSENT: dysuria, hematuria Musculoskeletal: ABSENT: joint swelling Integumentary: ABSENT: rash, wounds Neurological: ABSENT: abnormal gait, abnormal speech, confusion, dizziness, focal weakness, syncope Psychiatric: ABSENT: anxiety, depression, homidical ideation, suicidal ideation Endocrine: ABSENT: cold intolerance, heat intolerance, polydipsia, polyuria Hematologic/Lymphatic: ABSENT: easy bleeding, easy bruising Physical Exam Vital Signs: Temp Pulse Resp BP Pulse Ox 98.2 F 76 18 162/93 H 96 08/04/20 17:53 08/04/20 17:53 08/04/20 17:53 08/04/20 17:53 08/04/20 17:53 Intake & Output 08/03/20 08/04/20 08/05/20 06:59 06:59 06:59 Weight 81.1 kg Additional comments: GENERAL APPEARANCE: Alert and oriented x3, in no acute distress HEENT: Normocephalic and atraumatic. No scleral icterus. Moist oral mucosa NECK: Supple. No lymphadenopathy or tenderness. No carotid bruit. No JVD CHEST: Symmetric. Nontender to palpation. LUNGS: Clear with good air entry bilaterally. Has faint wheezing bilaterally HEART: Regular rate and rhythm with normal S1 and S2. No murmurs, gallops, or rubs. ABDOMEN: Flat, soft, active bowel sounds, no direct or rebound tenderness. No organomegaly detected. No CVA tenderness EXTREMITIES: No cyanosis, clubbing, or edema. MUSCULOSKELETAL: No deformity, atrophy or swelling noted PSYCHIATRIC: Recent and remote memory is intact. Appropriate mood and affect. SKIN: Warm, dry, and well perfused. No lesions or rashes are noted. NEUROLOGIC: Cranial nerve II: Normal visual acuity but the peripheral field of vision appears to be decreased Peroneal nerve III to XII grossly intact Motor: Power was 5/5 in all upper and lower extremities. No muscle atrophy, no fasciculation Sensation: Intact sensation to light touch in all 4 extremities Reflexes: +2 at knee, ankle, biceps and wrist. No clonus Results Laboratory Results: 08/04/20 21:57 08/04/20 21:57 08/04/20 08/04/20 08/04/20 19:07 21:57 21:57 WBC 6.1 RBC 5.03 Hgb 17.0 Hct 48.7 MCV 97 MCH 33.8 H MCHC 35.0 RDW 12.9 Plt Count 278 Seg Neutrophils % 56.2 Sodium Cancelled 138.9 Potassium Cancelled 4.3 Chloride Cancelled 106 Carbon Dioxide Cancelled 26 Anion Gap Cancelled 7 BUN Cancelled 24 H Creatinine Cancelled 0.89 Est GFR ( Amer) Cancelled > 60 Est GFR (Non-Af Amer) Cancelled Glucose Cancelled 94 Calcium Cancelled 9.7 Total Bilirubin Cancelled 0.9 AST Cancelled 26 Alkaline Phosphatase Cancelled 88 Total Protein Cancelled 7.1 Albumin Cancelled 4.3 Impressions: Head MRI 08/04/20 18:05 IMPRESSION: 1. Acute lacunar infarct in the right temporal lobe white matter. 2. Chronic microvascular ischemia. 3. Unremarkable MR angiogram of the head and neck. Brain MRI with MRA 08/04/20 18:07 IMPRESSION: 1. Acute lacunar infarct in the right temporal lobe white matter. 2. Chronic microvascular ischemia. 3. Unremarkable MR angiogram of the head and neck. Neck MRA 08/04/20 18:07 IMPRESSION: 1. Acute lacunar infarct in the right temporal lobe white matter. 2. Chronic microvascular ischemia. 3. Unremarkable MR angiogram of the head and neck. Assessment and Plan - Diagnosis (1) Lacunar infarct, acute Is this a current diagnosis for this admission?: Yes Plan: Patient presents with loss of peripheral vision Has no other neurologic deficit NIH stroke score of 1, ABCD 2 score was 4 MRI head showed acute lacunar infarct in the right temporal lobe MRA head and neck was negative for significant stenosis Obtain echocardiogram in the morning Started on aspirin and atorvastatin Placed him on normal saline at 75 mL/h Hold antihypertensives for now to allow permissive hypertension Neurochecks, fall precaution, swallow eval PT/OT consult placed Will consider ophthalmology consult Placed him on telemetry (2) Peripheral vision loss Qualifiers: Laterality: bilateral Qualified Code(s): H53.453 - Other localized visual field defect, bilateral Is this a current diagnosis for this admission?: Yes Plan: Patient presents with a week and half duration of loss of peripheral vision On physical examination decreased visual field peripherally bilaterally MRI head showed acute lacunar infarct in the temporal lobe but no occipital lobe involvement was reported Patient has a history of glaucoma and may be contributing to change in his field of vision Will place ophthalmology consult Continue medications for glaucoma in the meantime Will manage acute stroke as stated above (3) Wheezing Is this a current diagnosis for this admission?: Yes Plan: Patient is a heavy tobacco smoker, 1 pack and half per day Has diffuse bilateral wheezing on physical exam Denies any shortness of breath or cough Placed him on as needed DuoNebs Would benefit from pulmonary function test as outpatient (4) Hypertension Is this a current diagnosis for this admission?: Yes Plan: Hold antihypertensive for now 12 low for permissive hypertension due to acute lacunar infarct (5) Tobacco dependence Is this a current diagnosis for this admission?: Yes Plan: Discussed the health risks of smoking and counseled him to quit but patient not ready at this point Declined nicotine patch - Time Time Spent with patient: 35 or more minutes Total Critical Time (Minutes): 45 Medications reviewed and adjusted accordingly: Yes Anticipated Discharge Disposition: Home, Self Care Anticipated Discharge Timeframe: within 72 hours - Inpatient Certification Based on my medical assessment, after consideration of the patient's comorbidities, presenting symptoms, or acuity I expect that the services needed warrant INPATIENT care.: Yes I certify that my determination is in accordance with my understanding of Medicare's requirements for reasonable and necessary INPATIENT services [42 CFR 412.3e].: Yes Medical Necessity: Significant Comorbidiites Make Outpatient Treatment Too Risky, Need Close Monitoring Due to Risk of Patient Decompensation, Need For IV Fluids, Need For Continuous Telemetry Monitoring, Risk of Complication if Not Cared For in Hospital Post Hospital Care: D/C or Transfer Summary
[2020-08-05] MEDS: FAMOTIDINE 20 MG TABLET PO SCH ×3 (00:52→21:20)
[2020-08-05] MEDS: ATORVASTATIN CALCIUM 40 MG TABLET PO SCH ×2 (00:52→21:20)
--- NOTE | 2020-08-05 07:25 | EKG REPORT ---
SEVERITY:- BORDERLINE ECG - SINUS RHYTHM BORDERLINE T WAVE ABNORMALITIES : Confirmed by: Oscar Tejeda MD 05-Aug-2020 07:23:57
[2020-08-05 08:22] LABS: CHOLESTEROL 155.19 mg/dL (0-200); TRIGLYCERIDES 145 mg/dL (<150)
[2020-08-05 08:32] LABS: DIRECT LDL 99 mg/dL (<100)
[2020-08-05] MEDS: ENOXAPARIN SODIUM INJ 40 MG/0.4 ML DISP.SYRIN SUBCUT SCH (09:38)
[2020-08-05] MEDS: ASPIRIN 81 MG TABLET, CHEWABLE PO SCH (09:39)
[2020-08-05] MEDS ORDERED: METOPROLOL TARTRATE 50 MG TABLET PO SCH (13:30)
[2020-08-05] MEDS ORDERED: NICOTINE 21 MG/24 HR PATCH.TD24 TD PRN (13:54)
--- NOTE | 2020-08-05 13:54 | PDOC PROGRESS REPORT ---
Subjective Date:: 08/05/20 Subjective:: He still complains of some blurriness of his peripheral vision. He denies any a jesus or pain in his eyes. Denies any headache. Reason For Visit: ACUTE STROKE,VISUAL LOSS Physical Exam Vital Signs: Temp Pulse Resp BP Pulse Ox 97.6 F 61 18 138/86 H 100 08/05/20 11:25 08/05/20 11:25 08/05/20 11:25 08/05/20 11:25 08/05/20 11:25 Intake & Output 08/04/20 08/05/20 08/06/20 06:59 06:59 06:59 Weight 79.6 kg General appearance: PRESENT: no acute distress, cooperative Head exam: PRESENT: normocephalic Eye exam: PRESENT: EOMI. ABSENT: nystagmus, scleral icterus Mouth exam: PRESENT: neck supple Neck exam: ABSENT: JVD Respiratory exam: PRESENT: symmetrical, unlabored, wheezes. ABSENT: accessory muscle use, retraction, tachypnea Cardiovascular exam: PRESENT: RRR, +S1, +S2. ABSENT: tachycardia GI/Abdominal exam: PRESENT: soft. ABSENT: rebound, rigid, tenderness Extremities exam: ABSENT: pedal edema Neurological exam: PRESENT: alert, awake, oriented to person, oriented to place, oriented to time, oriented to situation, CN II-XII grossly intact, normal gait, other - on my assessment, he does not seem have complete peripheral vision loss but rather decreased accuity of his peripheral vision. Still able to notice my fingers in both peripheries of both eyes. ABSENT: altered, abnormal gait, gwyn danilo, motor sensory deficit, aphasic Psychiatric exam: ABSENT: agitated, anxious Focused psych exam: ABSENT: pressured speech Results Laboratory Results: 08/04/20 21:57 08/04/20 21:57 08/04/20 08/04/20 08/04/20 19:07 21:57 21:57 WBC 6.1 RBC 5.03 Hgb 17.0 Hct 48.7 MCV 97 MCH 33.8 H MCHC 35.0 RDW 12.9 Plt Count 278 Seg Neutrophils % 56.2 Sodium Cancelled 138.9 Potassium Cancelled 4.3 Chloride Cancelled 106 Carbon Dioxide Cancelled 26 Anion Gap Cancelled 7 BUN Cancelled 24 H Creatinine Cancelled 0.89 Est GFR ( Amer) Cancelled > 60 Est GFR (Non-Af Amer) Cancelled Glucose Cancelled 94 Calcium Cancelled 9.7 Total Bilirubin Cancelled 0.9 AST Cancelled 26 Alkaline Phosphatase Cancelled 88 Total Protein Cancelled 7.1 Albumin Cancelled 4.3 Triglycerides Cholesterol LDL Cholesterol Direct VLDL Cholesterol HDL Cholesterol 08/05/20 07:14 WBC RBC Hgb Hct MCV MCH MCHC RDW Plt Count Seg Neutrophils % Sodium Potassium Chloride Carbon Dioxide Anion Gap BUN Creatinine Est GFR ( Amer) Est GFR (Non-Af Amer) Glucose Calcium Total Bilirubin AST Alkaline Phosphatase Total Protein Albumin Triglycerides 145 Cholesterol 155.19 LDL Cholesterol Direct 99 VLDL Cholesterol 29.0 HDL Cholesterol 36 L Impressions: Head MRI 08/04/20 18:05 IMPRESSION: 1. Acute lacunar infarct in the right temporal lobe white matter. 2. Chronic microvascular ischemia. 3. Unremarkable MR angiogram of the head and neck. Brain MRI with MRA 08/04/20 18:07 IMPRESSION: 1. Acute lacunar infarct in the right temporal lobe white matter. 2. Chronic microvascular ischemia. 3. Unremarkable MR angiogram of the head and neck. Neck MRA 08/04/20 18:07 IMPRESSION: 1. Acute lacunar infarct in the right temporal lobe white matter. 2. Chronic microvascular ischemia. 3. Unremarkable MR angiogram of the head and neck. Assessment and Plan - Diagnosis (1) Lacunar infarct, acute Is this a current diagnosis for this admission?: Yes Plan: Patient has decreased acuity of peripheral vision but no other neurologic deficits. NIH stroke score of 1 MRI head showed acute lacunar infarct in the medial of right temporal lobe MRA head and neck was negative for significant stenosis I discussed with patient about waiting to get echocardiogram performed on Friday but states he wants to have this done outpatient as he does want to wait till Friday. He is however agreeable to being watched for the next 24 hours to look for occult arrhythmias on telemetry. aspirin and atorvastatin allow permissive hypertension for 24 hours Neurochecks PT/OT consult placed (2) Cerebral microvascular disease Is this a current diagnosis for this admission?: Yes Plan: Noted eyes MRI/MRA. Likely this is contributing to his vision symptoms. Plan as above. (3) Hypertension Qualifiers: Hypertension type: essential hypertension Qualified Code(s): I10 - Essential (primary) hypertension Is this a current diagnosis for this admission?: Yes Plan: Permissive hypertension until 24-hour. (4) Peripheral vision loss Qualifiers: Laterality: bilateral Qualified Code(s): H53.453 - Other localized visual field defect, bilateral Is this a current diagnosis for this admission?: Yes Plan: Patient presents with a week and half duration of loss of peripheral vision On physical examination decreased acuity of visual field peripherally bilat erally MRI head showed acute lacunar infarct in the temporal lobe but no occipital lobe involvement was reported It is uncertain that the acute lacunar infarct of his temporal lobe would cause decreased peripheral vision. It is more likely that chronic microvascular disease may have culminated in t his. Also his glaucoma may be contributing to change in his field of vision I have resumed his eyedrops Unfortunately we do not have ophthalmology consult available over the weekend. He will continue to follow-up with his regular design inserter as outpatient. Continue stroke treatment as above. (5) Wheezing Is this a current diagnosis for this admission?: Yes Plan: Patient is a heavy tobacco smoker, 1 pack and half per day Placed him on as needed DuoNebs Would benefit from pulmonary function test as outpatient (6) Tobacco dependence Is this a current diagnosis for this admission?: Yes - Time Time Spent with patient: 15-24 minutes Anticipated Discharge Disposition: Home, Self Care Anticipated Discharge Timeframe: within 24 hours
[2020-08-05] MEDS: DORZOLAMIDE HCL 2% OPH SOLN 10 ML OU SCH (17:47)
[2020-08-05] MEDS ORDERED: DORZOLAMIDE HCL OU SCH (18:00)
[2020-08-05] MEDS: METOPROLOL TARTRATE 50 MG TABLET PO SCH (21:20)
[2020-08-05] MEDS: TIMOLOL MALEATE 0.25% OPH SOLN 5 ML OU SCH (21:20)
[2020-08-05] MEDS ORDERED: LATANOPROST 0.005% OPH SOLN 2.5 ML OU SCH (22:00)
[2020-08-06] MEDS: ASPIRIN 81 MG TABLET, CHEWABLE PO SCH (09:22)
[2020-08-06] MEDS: METOPROLOL TARTRATE 50 MG TABLET PO SCH (09:22)
[2020-08-06] MEDS: ENOXAPARIN SODIUM INJ 40 MG/0.4 ML DISP.SYRIN SUBCUT SCH (09:22)
[2020-08-06] MEDS: FAMOTIDINE 20 MG TABLET PO SCH (09:22)
[2020-08-06] MEDS: DORZOLAMIDE HCL 2% OPH SOLN 10 ML OU SCH (09:23)
[2020-08-06] MEDS: TIMOLOL MALEATE 0.25% OPH SOLN 5 ML OU SCH (09:23)
[2020-08-06] MEDS ORDERED: [UNRECOGNIZED DRUG - OTHER] PO SCH (10:00)
[2020-08-06] MEDS ORDERED: HYDROCHLOROTHIAZIDE 12.5 MG TABLET PO SCH (10:00)
[2020-08-06] MEDS ORDERED: LACTOBACILLUS ACIDOPHILUS 250 MG TAB PO SCH (10:00)
--- NOTE | 2020-08-06 10:11 | PDOC DISCHARGE SUMMARY ---
Impression - Admit/DC Date/PCP Admission Date/Primary Care Provider: 08/04/20 23:43 JAMEEL DELEON MD Discharge Date: 08/06/20 - Discharge Diagnosis (1) Lacunar infarct, acute Is this a current diagnosis for this admission?: Yes (2) Cerebral microvascular disease Is this a current diagnosis for this admission?: Yes (3) Hypertension Is this a current diagnosis for this admission?: Yes (4) Peripheral vision loss Is this a current diagnosis for this admission?: Yes (5) Wheezing Is this a current diagnosis for this admission?: Yes (6) Tobacco dependence Is this a current diagnosis for this admission?: Yes - Additional Information Resuscitation Status: Full Code Discharge Diet: Cardiac Discharge Activity: Activity As Tolerated Referrals: JAMEEL DELEON MD [Primary Care Provider] - Follow up as needed Prescriptions: Aspirin [Ecotrin 81 mg EC Tablet] 81 mg PO DAILY #30 tab Hydrochlorothiazide [Hydrodiuril 12.5 mg Tablet] 12.5 mg PO DAILY #30 tablet Atorvastatin Calcium [Lipitor 40 mg Tablet] 40 mg PO QHS #30 tablet Clopidogrel Bisulfate [Plavix 75 mg Tablet] 75 mg PO DAILY 21 Days #21 tablet Home Medications: Dorzolamide HCl/Pf [Dorzolamide 2% Eye Drop] 10 ml OU BID 08/05/20 Lactobacillus 3/Fos/Pantethine [Probiotic & Acidophilus Cap] 1 each PO DAILY 08/05/20 Latanoprost [Xalatan 0.005% Oph Soln 2.5 ml] 1 drop OU QHS 08/05/20 Metoprolol Tartrate [Lopressor] 50 mg PO BID 08/05/20 Timolol Maleate [Istalol] 2.5 ml OU BID 08/05/20 Aspirin [Ecotrin 81 mg EC Tablet] 81 mg PO DAILY #30 tab 08/06/20 Atorvastatin Calcium [Lipitor 40 mg Tablet] 40 mg PO QHS #30 tablet 08/06/20 Clopidogrel Bisulfate [Plavix 75 mg Tablet] 75 mg PO DAILY 21 Days #21 tablet 08/06/20 Hydrochlorothiazide [Hydrodiuril 12.5 mg Tablet] 12.5 mg PO DAILY #30 tablet 08/06/20 History of Present Illiness History of Present Illness: According to admitting provider: BRIDGETTE URIBE is a 75 year old male with a history of hypertension, glaucoma and TIA who presents with a week and half duration of peripheral loss of vision. Patient was evaluated by outside ophthalmology and on a work-up CT head was done which was concerning for a possible subacute stroke. Attempt was made to complete the work-up as outpatient with his primary care at the [place] but was unsuccessful and he was sent to the ED for further work-up and management. Patient reports that he developed a sudden onset change in his vision which she describes as his peripheral vision being blurry on both side. He states that he has not noticed any worsening after the initial incident. He denies any change in his speech, weakness in his extremities, difficulty of swallowing, dizziness or any numbness or tingling in his extremities. He also denied any history of head injury, palpitation, chest pain, or any change in his bowel or urinary habits. MRI and MRA head and neck were done which showed acute lacunar infarct in the right temporal lobe with chronic microvascular signs of ischemia. Hospital Course Hospital Course: Patient was admitted for evaluation of recent onset of decreased acuity of his peripheral vision. He had no other neurological deficit on exam. He underwent MRI of the brain which revealed acute lacunar infarct in his medial portion of his right temporal lobe. It is unclear if this could have contributed to his peripheral vision loss especially as it was only lacunar infarct and there was no involvement of the occipital lobe. However, it is more likely that his chronic microvascular ischemia noted in the supratentorial region of his white matter or his known history of glaucoma contributed to his visual symptoms. His MRA of the brain and neck were unremarkable. He was monitored in the hospital on the telemetry for over 36 hours and I reviewed his quality assurance monitor body of which shows no evidence of A. fib or other arrhythmias. He has been cleared by physical therapy and has no muscle deficits. A1c was normal. He has been started on atorvastatin, lifelong aspirin and 21 days of Plavix. He takes metoprolol for his hypertension but given his BP was still mildly high on the metoprolol, I have added hydrochlorothiazide to his regimen. I had an extensive conversation with him about smoking cessation. He was also noted to have some wheezing received bronchodilators. This morning he is not notably wheezing but it is still likely that he may have some underlying COPD especially given his extensive smoking history. I have given him prescription for albuterol and recommended him to have pulmonary function test performed by his primary care provider. Patient is to follow-up with his primary care provider and gluing machine operator automatic upon discharge. He has an appointment to see his gluing machine operator automatic this coming Friday. Physical Exam Vital Signs: Temp Pulse Resp BP Pulse Ox 97.9 F 81 17 157/97 H 97 08/06/20 07:34 08/06/20 07:34 08/06/20 07:34 08/06/20 07:34 08/06/20 07:34 Intake & Output 08/05/20 08/06/20 08/07/20 06:59 06:59 06:59 Intake Total 260 Balance 260 Weight 79.6 kg 80.9 kg General appearance: PRESENT: no acute distress, cooperative Neck exam: ABSENT: JVD Respiratory exam: PRESENT: clear to auscultation juan, symmetrical, unlabored. ABSENT: tachypnea, wheezes Cardiovascular exam: PRESENT: RRR, +S1, +S2. ABSENT: irregular rhythm, tachycardia GI/Abdominal exam: PRESENT: soft. ABSENT: rigid, tenderness Neurological exam: PRESENT: alert, awake, oriented to person, oriented to place, oriented to time, oriented to situation, CN II-XII grossly intact, other - he does not seem have complete peripheral vision loss but rather decreased accuity of his peripheral vision. Still able to notice my fingers in both peripheries of both eyes.. ABSENT: motor sensory deficit Results Laboratory Results: WBC 6.1 10^3/uL (4.0-10.5) 08/04/20 21:57 RBC 5.03 10^6/uL (4.35-5.55) 08/04/20 21:57 Hgb 17.0 g/dL (13.5-17.0) 08/04/20 21:57 Hct 48.7 % (37.9-51.0) 08/04/20 21:57 MCV 97 fl (80-97) 08/04/20 21:57 MCH 33.8 pg (27.0-33.4) H 08/04/20 21:57 MCHC 35.0 g/dL (32.0-36.0) 08/04/20 21:57 RDW 12.9 % (11.5-14.0) 08/04/20 21:57 Plt Count 278 10^3/uL (150-450) 08/04/20 21:57 Lymph % (Auto) 33.7 % (13-45) 08/04/20 21:57 Morgan % (Auto) 7.6 % (3-13) 08/04/20 21:57 Eos % (Auto) 1.9 % (0-6) 08/04/20 21:57 Baso % (Auto) 0.6 % (0-2) 08/04/20 21:57 Absolute Neuts (auto) 3.4 10^3/uL (1.7-8.2) 08/04/20 21:57 Absolute Lymphs (auto) 2.1 10^3/uL (0.5-4.7) 08/04/20 21:57 Absolute Monos (auto) 0.5 10^3/uL (0.1-1.4) 08/04/20 21:57 Absolute Eos (auto) 0.1 10^3/uL (0.0-0.6) 08/04/20 21:57 Absolute Basos (auto) 0.0 10^3/uL (0.0-0.2) 08/04/20 21:57 Seg Neutrophils % 56.2 % (42-78) 08/04/20 21:57 PT 13.3 SEC (11.4-15.4) 08/04/20 19:07 INR 0.99 08/04/20 19:07 Sodium 138.9 mmol/L (137-145) 08/04/20 21:57 Potassium 4.3 mmol/L (3.6-5.0) 08/04/20 21:57 Chloride 106 mmol/L (98-107) 08/04/20 21:57 Carbon Dioxide 26 mmol/L (22-30) 08/04/20 21:57 Anion Gap 7 (5-19) 08/04/20 21:57 BUN 24 mg/dL (7-20) H 08/04/20 21:57 Creatinine 0.89 mg/dL (0.52-1.25) 08/04/20 21:57 Est GFR ( Amer) > 60 (>60) 08/04/20 21:57 Est GFR (Non-Af Amer) Cancelled 08/04/20 19:07 Est GFR (MDRD) Non-Af > 60 (>60) 08/04/20 21:57 Glucose 94 mg/dL (75-110) 08/04/20 21:57 Hemoglobin A1c % 4.8 % (4.7-6.0) 08/05/20 07:14 Calcium 9.7 mg/dL (8.4-10.2) 08/04/20 21:57 Total Bilirubin 0.9 mg/dL (0.2-1.3) 08/04/20 21:57 Direct Bilirubin 0.1 mg/dL (0.0-0.4) 08/04/20 21:57 Neonat Total Bilirubin Not Reportable 08/04/20 21:57 Neonat Direct Bilirubin Not Reportable 08/04/20 21:57 Neonat Indirect Bili Not Reportable 08/04/20 21:57 AST 26 U/L (17-59) 08/04/20 21:57 ALT 18 U/L (<50) 08/04/20 21:57 Alkaline Phosphatase 88 U/L (38-126) 08/04/20 21:57 Total Protein 7.1 g/dL (6.3-8.2) 08/04/20 21:57 Albumin 4.3 g/dL (3.5-5.0) 08/04/20 21:57 Triglycerides 145 mg/dL (<150) 08/05/20 07:14 Cholesterol 155.19 mg/dL (0-200) 08/05/20 07:14 LDL Cholesterol Direct 99 mg/dL (<100) 08/05/20 07:14 VLDL Cholesterol 29.0 mg/dL (10-31) 08/05/20 07:14 HDL Cholesterol 36 mg/dL (>40) L 08/05/20 07:14 EGFR Cancelled 08/04/20 19:07 Impressions: Head MRI 08/04/20 18:05 IMPRESSION: 1. Acute lacunar infarct in the right temporal lobe white matter. 2. Chronic microvascular ischemia. 3. Unremarkable MR angiogram of the head and neck. Brain MRI with MRA 08/04/20 18:07 IMPRESSION: 1. Acute lacunar infarct in the right temporal lobe white matter. 2. Chronic microvascular ischemia. 3. Unremarkable MR angiogram of the head and neck. Neck MRA 08/04/20 18:07 IMPRESSION: 1. Acute lacunar infarct in the right temporal lobe white matter. 2. Chronic microvascular ischemia. 3. Unremarkable MR angiogram of the head and neck. Plan Time Spent: Greater than 30 Minutes Stroke Is this a Stroke Patient?: Yes Stroke Pt being discharged on Anti-thrombolytic therapy?: Yes Stroke Pt being discharged on Anti-coagulation therapy?: No Reason(s) for not prescribing Anti-coagulation therapy:: Not indicated Stroke Pt being discharged on Statins?: Yes Acute Heart Failure Is this a Heart Failure Patient?: No
[2020-08-06 11:33] VITALS: BP 179/90
== END 2020-08-06 12:01 | disposition home or self-care (01) | DRG 66 ==
LOC: ER 17:44 → EH 23:43 → 3S 08-05 01:00
PROVIDERS: ADMIT Student in an Organized Health Care Education/Training Program; ATTEND Internal Medicine
DX: I63.81 Other cerebral infarction due to occlusion or stenosis of small artery (principal); I10 Essential (primary) hypertension; H40.9 Unspecified glaucoma; H53.453 Other localized visual field defect, bilateral; F17.210 Nicotine dependence, cigarettes, uncomplicated; R06.2 Wheezing; R29.701 NIHSS score 1; Z86.73 Personal history of transient ischemic attack (TIA), and cerebral infarction without residual deficits; Z88.6 Allergy status to analgesic agent; Z71.6 Tobacco abuse counseling; Z79.899 Other long term (current) drug therapy
CPT/HCPCS: 36415; 70544; 70547; 70551; 80053; 80061; 83036; 85025; 85610; 93005; 93010; 96374; 99285; J1650; J2060; J3490